=== PATIENT | female | born 1990 | race Asian ===

== ENCOUNTER 2018-07-04 12:21 | Inpatient (IN) | payer OTHER ==
[2018-07-04] MEDS ORDERED: NS 0.9% 1000 ML* 1,000 ML IV ONE (13:52)
[2018-07-04] MEDS ORDERED: Piperacillin/Tazobac ADVAN(*) 3.375 GM in NS 0.9% 100 ML* 100 ML IVPB ONE (13:54)
[2018-07-04] MEDS ORDERED: NS 0.9% 1000 ML*IV.FLUID IV ONE (13:54)
[2018-07-04 14:15] LABS: ABS Basophils 0 10^3/ul (0-0.2); ABS Eosinophils 0 10^3/ul (0-0.6); ABS Lymphocytes 1.2 10^3/ul (1.0-4.8); ABS Monocytes 0.8 10^3/ul (0-0.8); ABS Neutrophils 10.2 10^3/ul (1.5-7.7); ABS Nucleated RBC 0 10^3/ul; Eosinophil % 0.2 % (0-6); Hematocrit 38 % (35-47); Hemoglobin 12.9 g/dl (12.0-16.0); Lymphocyte % 9.8 % (25-47); Mean Corpuscular HGB Conc 34 g/dl (31-36); Mean Corpuscular Hemoglobin 30 pg (27-31); Mean Corpuscular Volume 91 fL (80-97); Mean Platelet Volume 7.8 um3 (7.4-10.4); Nucleated Red Blood Cells % 0; Platelet Count 264 10^3/ul (150-450); Red Blood Count 4.24 10^6/ul (4.00-5.40); Red Cell Distribution Width 12 % (10.5-15); White Blood Count 12.3 10^3/ul (3.5-10.8)
[2018-07-04 14:38] LABS: EGFR Non-African American 101.3 (>60); INR 1.07 (0.77-1.02)
[2018-07-04 16:13] LABS: Urine Appearance Clear; Urine Blood Negative (Negative); Urine Color Straw; Urine Ketones 1+ (Negative); Urine Protein Negative (Negative); Urine Specific Gravity 1.006 (1.010-1.030); Urine Urobilinogen Negative (Negative)
[2018-07-04] MEDS ORDERED: Iohexol 300* (CONTRAST) 10 ML SDV IV ONE (16:39)
--- NOTE | 2018-07-04 17:24 | RAD ---
INDICATION: Lower abdominal pain with fever and elevated white count. COMPARISON: There are no relevant prior studies available for comparison. TECHNIQUE: A CT scan of the abdomen and pelvis was performed with intravenous and with oral contrast following intravenous injection of 76 ml of Omnipaque 300 nonionic contrast. Contiguous axial sections were obtained from the lung bases through the symphysis pubis. Images were reconstructed in the coronal and sagittal planes. FINDINGS: There is mild right lower lobe atelectasis. No pleural effusion is present. The liver and spleen are normal in size. There are couple small hypodense hepatic lesions measuring up to 0.6 cm in size which are too small to characterize by CT although likely represent cysts. No calcified gallstones are seen. The pancreas appears to be within normal limits. The kidneys and adrenal glands are normal in size. No hydronephrosis is seen. No significant focal renal abnormality is seen. The aorta is normal in caliber and demonstrates homogeneous contrast opacification. No significant enlarged retroperitoneal lymph nodes are seen. The stomach, small and large bowel appear nondistended. There is an inflammatory process present in the right lower quadrant. There is thickening of the medial and inferior wall of the cecum. Medial and posterior to this region there is increased density extending posterior toward a complex collection with a thickened poorly defined wall measuring 3.6 cm in diameter. There is also thickening of the wall of the distal ileum and stranding in the right surrounding fat. There is a small amount of free intraperitoneal posterior pelvis. No free intraperitoneal air is seen. The uterus is anteverted and normal in size. No significant focal osseous abnormality is seen. IMPRESSION: INFLAMMATORY PROCESS IN THE RIGHT LOWER QUADRANT MOST LIKELY REPRESENTING A RUPTURED APPENDICITIS WITH A POORLY DEFINED ABSCESS LESS LIKELY PELVIC INFLAMMATORY DISEASE OR INFLAMMATORY BOWEL DISEASE WITH AN ABSCESS.
[2018-07-04] MEDS ORDERED: Ketorolac INJ* 30 MG/ML 1 ML VIAL IV PUSH ONE (17:48)
[2018-07-04] MEDS ORDERED: HYDROmorphone INJ* 0.5 MG/0.5 ML SYRINGE IV PRN (20:00)
[2018-07-04] MEDS: Levofloxacin 500 MG IVPREMIX(* 500 MG/100 ML BAG IVPB SCH (20:47)
[2018-07-04] MEDS: metroNIDAZOLE IV 500 MG/100ML* 500 MG/100 ML BAG IVPB SCH (22:09)
--- NOTE | 2018-07-05 04:27 | HP ---
CC: [facility]; [facility] * HISTORY AND PHYSICAL: DATE OF ADMISSION: 07/04/18 LOCATION: Emergency room. HISTORY OF PRESENT ILLNESS: I was contacted by the emergency room to evaluate Ms. 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 It was accompanied with nausea, but no vomiting. The patient had decreased appetite. The pain is nonradiating and the patient denies any similar pain in the past. She is passing flatus and is otherwise comfortable at the time of evaluation. The patient states that the day before she was in [facility], she was in a routine good health, but by the end of the day, she did not feel completely well and this led into the following morning where the patient started having the right-sided abdominal pain. PAST MEDICAL HISTORY: None. PAST SURGICAL HISTORY: No abdominal surgeries. MEDICATIONS: She is on no home medications. ALLERGIES: No known drug allergies. FAMILY HISTORY: Noncontributory. No family history of ulcerative colitis or Crohn's disease. 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 She is . She is a nonsmoker. No children. REVIEW OF SYSTEMS: No shortness of breath or chest pain. No fevers. Nausea as described above. Abdominal pain as described. No dysuria. No change in bowel habits. The patient is currently having her period; it is a little heavier than usual. No bleeding or clotting disorders. She never had anesthesia before. PHYSICAL EXAMINATION GENERAL: She is alert and oriented x3, in no apparent distress. VITAL SIGNS: She is afebrile. Vital signs are stable. Blood pressure 108/69. HEENT: Normocephalic, atraumatic. Sclerae anicteric. Mucous membranes are moist. LUNGS: Clear to auscultation bilaterally. ABDOMEN: Soft, nondistended. Minimal tenderness on deep palpation in the right lower quadrant. No rebound tenderness. BACK: No CVA tenderness. RECTAL: No rectal exam performed. EXTREMITIES: Within normal limits. DIAGNOSTIC STUDIES/LAB DATA: Show a white count of 12 with left shift. Rest of the CBC is within normal limits and metabolic panel shows an elevated CRP of 69 with a normal lipase and normal labs overall. Urinalysis showed 1+ ketones. The patient underwent a CAT scan of the abdomen and pelvis. These images were reviewed, shows an abscess in the pelvis of unclear etiology concerning for appendicitis. Appendix is not visualized. There is a scant free fluid. No free air. IMPRESSION/PLAN: Pelvic abscess likely secondary to ruptured appendix in a patient who is very comfortable at this time. My recommendation is antibiotics , n.p.o. status for now. IV fluids. Evaluation by AIRCRAFT BODY REPAIRER and pain control. I discussed this with the family members. We discussed the possibility of operation either for drainage or for drainage and potential appendectomy. Also , talked about the possible interventional radiology drainage. The patient's asked questions that he will be relying back to family members in [place], who are physicians. These were answered appropriately. The patient would be watched closely. [id number]/[facility] #: [id number] [facility]PITALIsid[facility]
[2018-07-05] MEDS: metroNIDAZOLE IV 500 MG/100ML* 500 MG/100 ML BAG IVPB SCH ×3 (05:48→22:11)
[2018-07-05 06:21] LABS: ABS Basophils 0 10^3/ul (0-0.2); ABS Eosinophils 0 10^3/ul (0-0.6); ABS Lymphocytes 1.2 10^3/ul (1.0-4.8); ABS Neutrophils 9.4 10^3/ul (1.5-7.7); ABS Nucleated RBC 0 10^3/ul; Eosinophil % 0.3 % (0-6); Hematocrit 33 % (35-47); Hemoglobin 11.2 g/dl (12.0-16.0); Lymphocyte % 10.6 % (25-47); Mean Corpuscular HGB Conc 34 g/dl (31-36); Mean Corpuscular Hemoglobin 30 pg (27-31); Mean Corpuscular Volume 90 fL (80-97); Mean Platelet Volume 7.3 um3 (7.4-10.4); Nucleated Red Blood Cells % 0; Platelet Count 223 10^3/ul (150-450); Red Cell Distribution Width 12 % (10.5-15); White Blood Count 11.6 10^3/ul (3.5-10.8)
[2018-07-05 06:42] LABS: EGFR Non-African American 114.6 (>60)
--- NOTE | 2018-07-05 09:28 | PN ---
Progress Note - Progress Note Date of Service: 07/05/18 SOAP: Subjective: Pt seen and examined. Feels well. No nausea. appetite improving Objective: Temp Pulse Resp BP Pulse Ox 98.2 F 89 18 104/53 98 07/05/18 07:29 07/05/18 07:29 07/05/18 08:00 07/05/18 07:29 07/05/18 07:29 Intake & Output 07/04/18 07/05/18 07/05/18 22:59 06:59 14:59 Intake Total 115 269 8716 Output Total 400 200 200 Balance -300 -95 1091 Weight 126 lb 0.013 oz 126 lb 0.013 oz lugs clear abdo: soft/ ND/ tender w/o rebound Assessment: pelvic abscess, likely appendiceal, HD stable case d/w IR- no plan for drainage Plan: abx restart diet POSTAL MAIL CARRIER consult
--- NOTE | 2018-07-05 20:16 | RAD ---
EXAM: US Pelvis, Transvaginal CLINICAL HISTORY: 27 years old, female; Pain; Pelvic pain; Additional info: Evaluate pelvic mass in rlq seen on CT TECHNIQUE: Real-time transvaginal pelvic ultrasound (complete) with image documentation. Transvaginal imaging was used for better evaluation of the endometrium and adnexa. COMPARISON: A/P W CT ABD/PEL W 07/04/2018 4:41 PM FINDINGS: Uterus/cervix: Uterus measures 7.3 x 3.9 x 5.1 cm. Endometrial stripe measures 4.0 mm. No myometrial mass. Right ovary: Right ovary measures 3.4 x 1.7 x 1.8 cm. Normal blood flow. Left ovary: Left ovary measures 3.0 x 1.6 x 2.6 cm. Normal blood flow. Free fluid: No free fluid. Bladder: Empty bladder which cannot be evaluated with this probe. Other findings: Mixed echogenicity lesion in the right lower quadrant measuring 3.5 cm corresponding to the abnormality seen on the comparison CT examination. By ultrasound it does not have a DRILL RIG OPERATOR etiology. IMPRESSION: 1. Right lower quadrant lesion noted on CT does not have a DRILL RIG OPERATOR etiology by ultrasound. 2. Otherwise normal pelvic ultrasound.
[2018-07-05] MEDS: Levofloxacin 500 MG IVPREMIX(* 500 MG/100 ML BAG IVPB SCH (21:12)
[2018-07-06] MEDS: metroNIDAZOLE IV 500 MG/100ML* 500 MG/100 ML BAG IVPB SCH ×3 (05:48→22:21)
--- NOTE | 2018-07-06 10:36 | PN ---
Progress Note - Progress Note Date of Service: 07/06/18 Note: S: Day # 2.5 Levo & Flagyl. Had sl sore throat last night. No abd c/o. No N/V. Douglas full liqs. + flatus and BM. O: Vital Signs - 8 hr 07/06/18 07/06/18 07/06/18 03:17 07:10 07:53 Temperature 98.4 F 98.8 F Pulse Rate 69 70 Respiratory 16 16 16 Rate Blood Pressure 94/38 95/56 (mmHg) O2 Sat by Pulse 98 98 Oximetry Intake and Output Last 24 Hours 07/04/18 07/05/18 07/06/18 07/07/18 06:59 06:59 06:59 06:59 Intake Total 1965 6422 830 Output Total 600 1800 700 Balance 1365 4622 130 Weight 126 lb 0.013 oz Intake: IV Fluids 1965 4817 ABX - FLAGYL 105 100 ABX - LEVOFLOXACIN 100 100 LR 4617 IVPB 100 ABX - FLAGYL 100 Oral 0 1505 830 Output: Urine 600 1800 700 Other: Estimated Void Small Date of Last Bowel 07/05/18 07/06/18 Movement # Bowel Movements 1 1 Estimated Stool Amount Small Small # Voids 1 Gen: WN; NAD; appears comfortable Heart: reg Lungs: clear to bases Abd: +BS; soft; mild RLQ tenderness; no peritoneal signs (overall, improved per pt) No labs today A: likely ruptured appendicitis w/ developing abscess, improving clinically P: will d/w Dr. Ryder re: advancement of diet, transition to po abx, and d/c plan as well as timing for repeat CT
--- NOTE | 2018-07-06 14:34 | PN ---
Progress Note - Progress Note Date of Service: 07/06/18 SOAP: Subjective: [27 y/o admitted with abdominal pain and s/sx consistent with appendix abscess responding to conservative treatment with antibiotics. patient states she feels much improved and pain is much better. She was seen by Dr. Tori Alegria yesterday on consultation for tariff compiling clerk.] Objective: Vital Signs 07/05/18 07/05/18 07/05/18 16:01 19:27 19:40 Temperature 98.5 F 98.4 F Pulse Rate 81 81 Respiratory 18 18 14 Rate Blood Pressure 98/49 100/54 (mmHg) O2 Sat by Pulse 99 99 Oximetry 07/05/18 07/06/18 07/06/18 23:39 03:17 07:10 Temperature 98.7 F 98.4 F Pulse Rate 72 69 Respiratory 16 16 16 Rate Blood Pressure 95/44 94/38 (mmHg) O2 Sat by Pulse 100 98 Oximetry 07/06/18 07:53 Temperature 98.8 F Pulse Rate 70 Respiratory 16 Rate Blood Pressure 95/56 (mmHg) O2 Sat by Pulse 98 Oximetry Allergies No Known Allergies Allergy (Verified 07/04/18 12:32) Amb Orders NK [No Home Medications Reported] 07/04/18 [Confirmed 07/04/18] Medications Levofloxacin/Dextrose (Levaquin 500 Mg Ivpremix(*)) 500 mg in 100 mls @ 100 mls /hr IVPB Q24H [facility] Last Admin: 07/05/18 21:12 Dose: 100 mls/hr Lactated Ringer's (Lactated Ringers 1000 Ml Bag*) 1,000 mls @ 125 mls/hr IV PER RATE [facility] Last Admin: 07/06/18 02:36 Dose: 125 mls/hr Metronidazole/Sodium Chloride (Flagyl 500 Mg Ivpb*) 500 mg in 100 mls @ 100 mls /hr IVPB Q8H [facility] Last Admin: 07/06/18 13:59 Dose: 100 mls/hr Discontinued Medications Sodium Chloride (Ns 0.9% 1000 Ml*) 1,000 mls @ 1,000 mls/hr IV ED ONCE ONE Stop: 07/04/18 14:51 Last Admin: 07/04/18 14:16 Dose: Not Given Non-Admin Reason: Declined by Patient Piperacillin Sod/Tazobactam (Sod 3.375 gm/ Sodium Chloride) 100 mls @ 200 mls/ hr IVPB ED ONCE ONE Stop: 07/04/18 14:23 Last Admin: 07/04/18 14:16 Dose: 200 mls/hr Iohexol (Omnipaque 300* (Contrast)) 76 ml IV ONCE ONE Stop: 07/04/18 16:40 Last Admin: 07/04/18 16:44 Dose: 76 ml Ketorolac Tromethamine (Toradol Inj*) 30 mg IV PUSH ED ONCE ONE Stop: 07/04/18 17:49 Last Admin: 07/04/18 17:56 Dose: 30 mg Sodium Chloride (Ns 0.9% 1000 Ml*) 1,710 ml 30 ml/kg (1710 ml) IV .WIDE OPEN ONE Stop: 07/04/18 13:55 Last Admin: 07/04/18 14:16 Dose: 1,710 ml SURGICAL HISTORY Surgical History None [Pelvic ultrasound Normal Uterus, ovaries and adnexae. Abscess not involving patient reproductive organs.] Assessment: [I agree with Dr. Alegria who saw the patient and ordered an ultrasound of pelvis, that her current condition is not gynecologic in nature.] Plan: [Continue current care, management per Surgery service.]
[2018-07-06] MEDS: Levofloxacin 500 MG IVPREMIX(* 500 MG/100 ML BAG IVPB SCH (20:52)
[2018-07-07] MEDS: metroNIDAZOLE IV 500 MG/100ML* 500 MG/100 ML BAG IVPB SCH ×3 (06:00→22:26)
[2018-07-07 08:32] LABS: ABS Basophils 0 10^3/ul (0-0.2); ABS Eosinophils 0.1 10^3/ul (0-0.6); ABS Lymphocytes 1.4 10^3/ul (1.0-4.8); ABS Monocytes 0.4 10^3/ul (0-0.8); ABS Neutrophils 3.1 10^3/ul (1.5-7.7); ABS Nucleated RBC 0 10^3/ul; Eosinophil % 2.3 % (0-6); Hematocrit 35 % (35-47); Hemoglobin 11.9 g/dl (12.0-16.0); Lymphocyte % 27.4 % (25-47); Mean Corpuscular HGB Conc 34 g/dl (31-36); Mean Corpuscular Hemoglobin 31 pg (27-31); Mean Corpuscular Volume 89 fL (80-97); Mean Platelet Volume 7.6 um3 (7.4-10.4); Nucleated Red Blood Cells % 0; Platelet Count 274 10^3/ul (150-450); Red Blood Count 3.91 10^6/ul (4.00-5.40); Red Cell Distribution Width 12 % (10.5-15); White Blood Count 5.1 10^3/ul (3.5-10.8)
[2018-07-07 08:42] LABS: EGFR Non-African American 96.5 (>60)
--- NOTE | 2018-07-07 12:24 | PN ---
Progress Note - Progress Note Date of Service: 07/07/18 SOAP: Subjective: Pt seen and examined. Doing well. SOme dizziness this am pos flatus, No N/V Objective: Temp Pulse Resp BP Pulse Ox 98.1 F 80 15 109/50 97 07/07/18 04:18 07/07/18 07:48 07/07/18 07:48 07/07/18 07:48 07/07/18 07:48 A and o x3, nad lungs clear abdo: soft/ ND/NT labs noted Assessment: pelvic abscess, likely perforated appendicitis, improving overall with abx case d/w pt and regarding plan going forward Plan: abx iv x48 hrs advance diet possible repeat CT scan next week d/c planning for Monday strong consideration for interval appendectomy
[2018-07-07] MEDS: Levofloxacin 500 MG IVPREMIX(* 500 MG/100 ML BAG IVPB SCH (20:51)
[2018-07-08] MEDS: metroNIDAZOLE IV 500 MG/100ML* 500 MG/100 ML BAG IVPB SCH (06:32)
[2018-07-08 07:47] VITALS: BP 100/56
--- NOTE | 2018-07-08 22:00 | DS ---
CC: [facility]; [facility] * DISCHARGE SUMMARY: DATE OF ADMISSION: DATE OF DISCHARGE: 07/08/18 HISTORY: Ms. Narvaez is a 27-year-old female, admitted to my service with what was felt to be a perforated appendicitis with known pelvic abscess on CT scan. Treatment was immediate bowel rest, IV antibiotics, and hydration. The patient did well and was observed for 3 days while diet was slowly advanced. The patient had no significant complaints and rarely utilized any pain medication. The case was discussed with an Interventional Radiology, who felt the abscess could not be drained. OB-SEAL MIXING OPERATOR was also consulted because of the concern that this was not secondary to a perforated appendix. They felt this is not SEAL MIXING OPERATOR in nature. It was also unclear if this was secondary to a perforated appendix versus some inflammatory bowel disorder, although likelihood of perforated appendix was the most entertained and discussed at length with the family members. On day of discharge, the patient was evaluated. She was afebrile. Vital signs are stable. Alert and oriented x3, in no apparent distress. Head, Ears, Eyes, Nose, And Throat: Normocephalic, atraumatic. Sclerae anicteric. Mucous membranes are moist. Neck: No lymphadenopathy. Abdomen: Soft, nondistended, nontender. Extremities: Within normal limits. PLAN: Discharge home on 9 more days of antibiotics. The patient was having concern about getting dizziness with levofloxacin, so sent her home on ciprofloxacin and Flagyl for 9 additional days. The patient will follow up in my office. We discussed the possibility of additional imaging versus just taking the patient to the operating room after 6 weeks for interval appendectomy. The patient also discussed the possibility of having this done at a later date when it was better on her schedule. We will continue to have a discussion as an outpatient. The patient will call on Monday for an appointment later in the week with me. I have instructed them to contact our offices should she have worsening pain or fever or vomiting. [id number]/[facility] #: [id number] [facility]
== END 2018-07-08 11:14 | disposition home or self-care (01) | DRG 373 ==
LOC: ED 12:21 → SSU 20:05
PROVIDERS: ADMIT Surgery; ATTEND Surgery
DX: K35.3 Acute appendicitis with localized peritonitis (principal)
CPT/HCPCS: 36415; 74177; 76830; 80048; 80053; 81003; 83605; 83690; 83735; 85025; 85610; 85730; 86140; 87040; 87480; 87491; 87510; 87591; 87661; 93005; 99284; J1885; J1956; J2543; J3490; Q9967